=== PATIENT | male | born 2000 | race Caucasian/White ===

== ENCOUNTER 2021-01-25 23:01 | Emergency (ER) | payer BC ==
[2021-01-25 23:11] VITALS: BP 131/72; PULSE 67
[2021-01-25] MEDS ORDERED: Ibuprofen 600 MG Tab PO ONE (23:36)
--- NOTE | 2021-01-26 | CR ---
INDICATION: Chest pain COMPARISON: None available. FINDINGS: An erect single view of the chest was obtained at 23 43 hours. The lungs are clear. No focal or diffuse infiltrates are present. There is no sign of pneumothorax or abnormality of the ribs to correlate with history of chest pain. The heart is normal in size. The mediastinum is normal in appearance. The osseous structures are normal in appearance for the patient`s age. IMPRESSION: Normal chest single view. Dictated by Ugo Collins MD @ Jan 25 2021 11:56PM Signed by Dr. Ugo Collins @ Jan 25 2021 11:57PM
--- NOTE | 2021-01-26 00:02 | EDM.PDOC ---
ED HPI GENERAL MEDICAL PROBLEM - General Chief Complaint: Chest Pain Stated Complaint: CHEST PAINS, HEART POUNDING Time Seen by Provider: 01/25/21 23:07 - History of Present Illness INITIAL COMMENTS - FREE TEXT/NARRATIVE: CHIEF COMPLAINT(S): Chest HISTORY OF PRESENT ILLNESS: This is a 20-year-old man without any significant past medical history who comes to the emergency department with a chief complaint of chest pain. The patient states that for approximately 2 weeks now he has been experiencing chest pain on the left side of his chest which he describes as a dull and sharp rated 7 out of 10 and intermittent. He states that the pain is worse with inspiration. He denies any injury to his chest wall and has been taking Aleve and Tylenol without any relief. He states that he does have a history of anxiety but has not been treated for it. He states that this may be due to a panic attack. He denies any shortness of breath, diaphoresis or nausea. He states that the pain is exacerbated by deep inspiration and by touching the left side of his chest wall. He states that he works at an [employer] and does lift heavy things but does not remember injuring himself at all. He denies any personal history of CAD, CHF, recent travel, recent surgery, prior history of DVT or PE. Mother is in presents to confirm that there is no family history of sudden onset at young age but there is history of hypertension and CAD and some family members over the age of 50. The patient denies any syncope. REVIEW OF SYSTEMS: Constitutional: Denies fever, chills. Eyes: Denies eye pain Ears, Nose, Mouth, & Throat: Denies earache Cardiovascular: Positive for left-sided chest pain and pleurisy Respiratory: Denies shortness of breath Gastrointestinal: Denies Nausea, vomiting, diarrhea, hematochezia. Genitourinary: Denies hematuria Skin:Denies a rash MSK: Denies joint pain Neurological: Denies blurred vision, numbness, tingling, weakness Psychiatric: Denies depression PAST MEDICAL HISTORY: As per history of present illness and as reviewed below otherwise noncontributory. SURGICAL HISTORY: As per history of present illness and as reviewed below otherwise noncontributory. SOCIAL HISTORY: As per history of present illness and as reviewed below otherwise noncontributory. FAMILY HISTORY: As per history of present illness and as reviewed below otherwise noncontributory. EXAMINATION OF ORGAN SYSTEMS/BODY AREAS: Constitutional: Blood pressure was 131/72, heart rate 67, respiratory rate 18 with an oxygen saturation 97% on room air. Temperature 36.0 General: Overall well-appearing young man who is in no acute distress Psychiatric: Appropriate mood and affect. Eyes: No scleral icterus or conjunctival erythema ENMT: Moist mucous membranes. No pharyngeal erythema Cardiovascular: Regular, rate, and rhythm. No gallops, murmurs, or rubs. Bilateral upper extremity pulses symmetric and intact. No peripheral edema. No JVD. Respiratory: Lungs clear to auscultation bilaterally. No wheezes, rales, or r honchi. Gastrointestinal: Soft, non-tender, non-distended. Normoactive bowel sounds Genitourinary: No suprapubic tenderness Musculoskeletal: There is tenderness to palpation along the inferior ribs on the left side of the chest. There is no overlying skin changes Skin: No lesions or abrasions. Neurological: Alert, GCS 15 strength and sensation intact. Gait is normal. MEDICAL DECISION MAKING AND COURSE IN THE ED WITH INTERPRETATION/REVIEW OF DIAGNOSTIC STUDIES: This is a 20-year-old man with a past medical history of anxiety who comes to the emergency department with left-sided chest pain for the last 2 weeks. The patient's vitals all appear to be normal and he is low risk for ACS given his age and family history. His chest pain is atypical and is tender on palpation. I do believe this is costochondritis secondary to heavy lifting at work. We did obtain an EKG which did not reveal any acute signs of ischemia. Will obtain a chest x-ray. We will provide the patient with Motrin for pain relief. I do not believe any other labs or imaging are indicated. PERC Rule Age (>/=50): No (0) HR (>/=100): No (0) SaO2 on RA <95%: No (0) Unilateral Leg Swelling: No (0) Hemoptysis: No (0) Surgery/Trauma in last month requiring general anesthesia: No (0) Prior PE or DVT: : No (0) Hormone Use: No (0) PERC negative Since patient is PERC negative and pre-test probability <15%, there is no need for more intensive workup, <2% chance of PE Time: 2301 Twelve-lead EKG interpreted by dionyelf. Normal sinus rhythm at a rate of 63beats per minute. Normal axis. ME interval is 150ms. QRS duration is 90ms. ST segments are normal without elevations or depressions. T wave inversion in 3 Q wave in 3.. Hypertrophy not noted. No prior EKG in our system . Interpretation: Normal sinus rhythm The radiological images were viewed by myself along with reading the report from the radiologist. Chest x-ray does not reveal any acute cardiopulmonary process. After EKG and chest x-ray the patient's vitals continue to remain stable. At this time I do believe he has costochondritis. I discussed pain medication administration and treatment at home. In regards to anxiety we did provide the patient with a list of resources. He is to return for any new or worsening symptoms. He was amenable to discharge at this time and had no further questions DISPOSITION: The patient was discharged home in stable condition. The patient will follow up with primary care physician within 1 week CONDITION: Fair PROCEDURES: None FINAL IMPRESSION(S)/DIAGNOSES: 1. Acute left-sided chest wall pain, likely costochondritis Neel Owens M.D. Chest Pain Score (Numeric/FACES): 7 - Related Data Allergies Allergy/AdvReac Type Severity Reaction Status Date / Time No Known Allergies Allergy Verified 01/25/21 23:06 Home Meds: Home Meds . [No Known Home Meds] 09/16/18 [History] Past Medical History HEENT History: Reports: None Cardiovascular History: Reports: None Respiratory History: Reports: None Gastrointestinal History: Reports: None Genitourinary History: Reports: None Musculoskeletal History: Reports: None Neurological History: Reports: None Psychiatric History: Reports: ADHD Endocrine/Metabolic History: Reports: None Insulin Pump Model and Paint Prep Technician: None Hematologic History: Reports: None Immunologic History: Reports: None Oncologic (Cancer) History: Reports: None Dermatologic History: Reports: None - Infectious Disease History Infectious Disease History: Reports: Chicken Pox - Past Surgical History Head Surgeries/Procedures: Reports: None Social & Family History - Family History Family Medical History: No Pertinent Family History - Caffeine Use Caffeine Use: Reports: None - Recreational Drug Use Recreational Drug Use: No ED ROS ALLERGIC REACTION - Review of Systems Review Of Systems: See Below ED EXAM GENERAL NO PERIP PULSE - Physical Exam Exam: See Below Course - Vital Signs Last Recorded V/S: Last Vital Signs Temp 36.0 C L 01/25/21 23:05 Pulse 67 01/25/21 23:05 Resp 18 01/25/21 23:05 BP 131/72 01/25/21 23:05 Pulse Ox 97 01/25/21 23:05 Departure - Departure Time of Disposition: 00:01 Disposition: Home, Self-Care 01 Condition: Fair Clinical Impression: Costal chondritis - Discharge Information *PRESCRIPTION DRUG MONITORING PROGRAM REVIEWED*: No *COPY OF PRESCRIPTION DRUG MONITORING REPORT IN PATIENT ROBB: No Instructions: Costochondritis, [id number] Referrals: PCP,None [Primary Care Provider] - Forms: ED Department Discharge Additional Instructions: You evaluate today on an emergent basis. At this time I do believe your chest pain is likely secondary to rib inflammation. I recommend the use of Tylenol and Motrin as described below. I would like you to ice this area 20 minutes 4 times a day and use Voltaren cream as needed. For your history of anxiety I do recommend you follow-up with primary care physician or the psych resources we provided with you. If you have any new or worsening symptoms such as worsening chest pain, passing out, shortness of breath please return to the emergency department. Please use: Tylenol 500-1000mg every 6 hours (DO NOT TAKE MORE THAN 4000mg in 1 day) Ibuprofen 400mg every 6 hours (Take with food as it can cause ulcers, GI upset) Example schedule: 8:00 AM (Tylenol 500-1000mg) 11:00 AM (Ibuprofen 400mg) 2:00 PM (Tylenol 500-1000mg) 5:00 PM (Ibuprofen 400mg) In addition to Tylenol and Motrin you may use over the counter creams such as Voltaren Cream or Lidocaine Cream (Lidoderm) as needed 4 times a day for symptomatic relief. Ice the area 20 minutes 4 times per day [facility] [address] [place] [id number] [address] [id number] The patient is informed of any results of their evaluation and diagnostic workup and all questions are answered. They are given discharge instructions and return precautions. The patient is stable for discharge. The patient states they understand and agree with the plan and that they will return if their symptoms get worse or if they have any new concerns. The following information is given to patients seen in the emergency department who are being discharged to home. This information is to outline your options for follow-up care. We provide all patients seen in our emergency department with a follow-up referral. The need for follow-up, as well as the timing and circumstances, are variable depending upon the specifics of your emergency department visit. If you don't have a primary care physician on staff, we will provide you with a referral. We always advise you to contact your personal physician following an emergency department visit to inform them of the circumstance of the visit and for follow-up with them and/or the need for any referrals to a consulting specialist. The emergency department will also refer you to a specialist when appropriate. This referral assures that you have the opportunity for follow-up care with a specialist. All of these measure are taken in an effort to provide you with optimal care, which includes your follow-up. Under all circumstances we always encourage you to contact your private physician who remains a resource for coordinating your care. When calling for follow-up care, please make the office aware that this follow-up is from your recent emergency room visit. If for any reason you are refused follow-up, please contact the [facility] Emergency Department at and asked to speak to the emergency department charge nurse. Sepsis Event Note (ED) - Evaluation Sepsis Screening Result: No Definite Risk - Focused Exam Vital Signs: Vital Signs Temp Pulse Resp BP Pulse Ox 01/25/21 23:05 36.0 C L 67 18 131/72 97
== END 2021-01-26 00:13 | disposition home or self-care (01) ==
LOC: MW.ED 23:01
DX: R07.89 Other chest pain (principal)
CPT/HCPCS: 71045; 93005; 99285; A9270; 93010; 99283

== ENCOUNTER 2023-11-25 22:47 | Emergency (ER) | payer BC ==
[2023-11-25] MEDS ORDERED: Acetaminophen 500 MG Tab PO ONE (22:58)
[2023-11-25] MEDS ORDERED: Ibuprofen 600 MG Tab PO ONE (22:58)
[2023-11-25 23:47] LABS: INFLUENZA A NAA NEGATIVE (NEGATIVE); INFLUENZA B NAA NEGATIVE (NEGATIVE)
[2023-11-25 23:54] LABS: CORONAVIRUS COVID-19 NAA POSITIVE (NEGATIVE)
[2023-11-26 00:19] VITALS: BP 124/49; PULSE 69
== END 2023-11-26 | disposition home or self-care (01) ==
LOC: MW.ED 22:47
DX: U07.1 COVID-19 (principal)
CPT/HCPCS: 0240U; 71045; 99283; A9270

== ENCOUNTER 2024-03-09 16:03 | Emergency (ER) | payer BC ==
[2024-03-09 16:22] VITALS: BP 134/78; PULSE 71
[2024-03-09] MEDS: Ibuprofen 800 MG Tab PO ONE (17:43)
== END 2024-03-09 18:18 | disposition home or self-care (01) ==
LOC: MW.ED 16:03
DX: S62.307A Unspecified fracture of fifth metacarpal bone, left hand, initial encounter for closed fracture (principal); V86.95XA Unspecified occupant of 3- or 4- wheeled all-terrain vehicle (ATV) injured in nontraffic accident, initial encounter
CPT/HCPCS: 29125; 70450; 70486; 73090; 73110; 73130; 99284; A9270